=== PATIENT | male | born 1980 | race Caucasian/White ===

== ENCOUNTER 2022-01-01 07:32 | Day surgery (SDC) | payer MEDICAID ==
[2022-01-01] MEDS ORDERED: Dextrose 5%-Lactated Ringers 1,000 ML IV SCH (09:00)
[2022-01-01] MEDS ORDERED: fentaNYL 100 MCG/2 ML SDV ONE (09:06)
[2022-01-01] MEDS ORDERED: Midazolam 1 MG/ML 2 ML SDV ONE (09:06)
[2022-01-01] MEDS ORDERED: Propofol 200 MG/20 ML SDV ONE (09:06)
[2022-01-01 13:00] VITALS: BP 111/72; PULSE 50
== END 2022-01-01 13:02 | disposition home or self-care (01) ==
LOC: JP.SDS 07:32
PROVIDERS: ATTEND Surgery
DX: K64.8 Other hemorrhoids (principal); F17.200 Nicotine dependence, unspecified, uncomplicated; I10 Essential (primary) hypertension; F20.9 Schizophrenia, unspecified
CPT/HCPCS: 45330; 46221; 62270; J2250; J2704; J3010; J7121

== ENCOUNTER 2022-03-28 20:05 | Emergency (ER) | payer MEDICAID ==
[2022-03-28 20:17] VITALS: BP 137/92; PULSE 90
== END 2022-03-28 20:57 | disposition home or self-care (01) ==
LOC: JP.ED 20:05
DX: S62.666A Nondisplaced fracture of distal phalanx of right little finger, initial encounter for closed fracture (principal); J45.909 Unspecified asthma, uncomplicated; Z88.5 Allergy status to narcotic agent; W22.8XXA Striking against or struck by other objects, initial encounter
CPT/HCPCS: 73140-F9; 99283

== ENCOUNTER 2022-04-15 15:00 | Emergency (ER) | payer MEDICAID ==
[2022-04-15 15:17] VITALS: BP 125/76; PULSE 63
[2022-04-15 15:48] LABS: TROPONIN I HIGH SENSITIVITY 5.6 pg/mL (<=60.3)
== END 2022-04-15 16:05 | disposition home or self-care (01) ==
LOC: JP.ED 15:00
DX: R07.89 Other chest pain (principal); J45.909 Unspecified asthma, uncomplicated; Z88.5 Allergy status to narcotic agent; Z79.899 Other long term (current) drug therapy
CPT/HCPCS: 36415; 71045; 71045-26; 80048; 84484; 85025; 93005; 99285

== ENCOUNTER 2024-01-27 18:27 | Emergency (ER) | payer MEDICAID ==
[2024-01-27 18:55] VITALS: BP 132/93; PULSE 81
[2024-01-27 19:50] LABS: BASOPHILS ABSOLUTE AUTO 0.04 K/uL (0.00-0.10); BASOPHILS PERCENT AUTO 0.4 % (0.1-1.3); EOSINOPHILS PERCENT AUTO 0.2 % (0.0-5.4); HEMATOCRIT 38.3 % (38.4-49.7); HEMOGLOBIN 12.1 g/dL (12.9-16.9); IMMATURE GRAN ABSOLUTE AUTO 0.06 K/uL (0.00-0.23); IMMATURE GRAN PERCENT AUTO 0.5 % (0.0-0.7); LYMPHOCYTES ABSOLUTE AUTO 0.39 K/uL (0.8-3.3); LYMPHOCYTES PERCENT AUTO 3.4 % (11.4-47.7); MEAN CORPUSCULAR HEMOGLOBIN 24.4 pg (31.6-35.5); MEAN CORPUSCULAR HGB CONC 31.6 g/dL (31.6-35.5); MEAN CORPUSCULAR VOLUME 77.2 fL (81.4-99.0); MONOCYTES ABSOLUTE AUTO 0.33 K/uL (0.20-0.90); MONOCYTES PERCENT AUTO 2.9 % (3.3-12.6); NEUTROPHILS ABSOLUTE AUTO 10.49 K/uL (1.0-7.6); NEUTROPHILS PERCENT AUTO 92.6 % (40.0-78.1); PLATELET COUNT,PLT 105 K/uL (130-375); RED BLOOD CELL COUNT 4.96 M/uL (4.14-5.76); WHITE BLOOD CELL COUNT,WBC 11.3 K/uL (3.2-11.0)
[2024-01-27 19:51] LABS: EOSINOPHILS ABSOLUTE AUTO 0.02 K/uL (0.00-0.40)
[2024-01-27] MEDS: Ondansetron 4 MG Tab.DIS PO ONE (19:51)
[2024-01-27 20:02] LABS: CALCIUM 9.4 mg/dL (8.5-10.1); CREATININE 1.4 mg/dL (0.8-1.3); EST CRCL DRUG DOSING (CG) 73.21 mL/min; POTASSIUM,K 4.4 mmol/L (3.6-5.2)
[2024-01-27 20:03] LABS: ANION GAP 12.4 mmol/L (5.0-14.0)
== END 2024-01-27 21:20 | disposition home or self-care (01) ==
LOC: JP.ED 18:27
DX: K52.9 Noninfective gastroenteritis and colitis, unspecified (principal); I10 Essential (primary) hypertension; F17.210 Nicotine dependence, cigarettes, uncomplicated; Z88.5 Allergy status to narcotic agent; Z88.8 Allergy status to other drugs, medicaments and biological substances; Z79.899 Other long term (current) drug therapy
CPT/HCPCS: 36415; 80048; 85025; 99284; Q0162

== ENCOUNTER 2024-11-25 11:11 | Emergency (ER) | payer MEDICAID ==
[2024-11-25 11:39] VITALS: BP 139/81; PULSE 81
== END 2024-11-25 12:55 | disposition home or self-care (01) ==
LOC: JP.ED 11:11
DX: J06.9 Acute upper respiratory infection, unspecified (principal); Z88.5 Allergy status to narcotic agent; Z79.899 Other long term (current) drug therapy
CPT/HCPCS: 99283; U0002

== ENCOUNTER 2025-01-09 20:59 | Emergency (ER) | payer MEDICAID ==
[2025-01-09 21:17] VITALS: BP 120/75; PULSE 56
== END 2025-01-09 23:11 | disposition home or self-care (01) ==
LOC: JP.ED 20:59
DX: S00.33XA Contusion of nose, initial encounter (principal); I10 Essential (primary) hypertension; F17.210 Nicotine dependence, cigarettes, uncomplicated; Z88.5 Allergy status to narcotic agent; Z79.899 Other long term (current) drug therapy; W22.8XXA Striking against or struck by other objects, initial encounter; Y93.89 Activity, other specified
CPT/HCPCS: 70450; 70486; 99283